=== PATIENT | male | born 1965 | race Hispanic/Latino ===

== ENCOUNTER 2021-02-15 11:44 | Emergency (ER) | payer OTHER, SELFPAY ==
--- OUTSIDE RECORDS SUMMARY | 2021-02-15 11:47 | XMS REPORT | Continuity of Care Document ---
:1965 Author Organization [facility] t Address [address] [place] [address] Support Name Relationship Address Phone Nara Littleoscarbrandy Spouse Unavailable Unavailable Nara Rodríguezoscarbrandy [place] [address] DISA Unavailable Unavailable Unavailable Joycelyn Rodríguez Spouse [address] [place] [address] YASMINE BRENNAN MD Primary Care Physician [address] [place] [address] VELMA BRENNAN, A Emergency Provider [address] [phone] [place] [address] Meeta RODRÍGUEZ Next of Kin [address] [phone] [place] [address] [address] DEBO BRENNAN, C Emergency Provider [address] [facility] [place] [address] Meeta RODRÍGUEZ Next of Kin [address] [place] [address] MARIELENA BRENNAN, E Emergency Provider [address] [facility] [address] [place] [address] NIGHAT BRENNAN, CASSANDRA Attending Provider [address] [phone] [place] [address] MD SAVANAH S Emergency Provider [address] [phone] [place] [address] MD PERRY A Emergency Provider [facility] [place] [address] MD JOY Emergency Provider [address] [place] [address] MD CARTER Emergency Provider [email or web address] [address] Care Team Providers Name Role Phone Javier AZEVEDO Primary Care Physician Unavailable Javier AZEVEDO Attending Clinician Unavailable RORO Attending Clinician Unavailable Javier AZEVEDO Admitting Clinician Unavailable RORO Admitting Clinician Unavailable Problems This patient has no known problems. Allergies, Adverse Reactions, Alerts Allergy Allergy Status Severity Reaction(s) Onset Inactive Treating Comm ents Source Name Type Date Date Clinician No Known DA Active U [facility] Drug 09-16 Allergie 00:00: s 00 Medications This patient has no known medications. Vital Signs Vital Name Observation Time Observation Value Comments Source BMI more than 35 2020-09-17 00:10:15 Y Body Mass Index 2020-09-17 00:10:15 29.5 Height 2020-09-17 00:10:15 165.1\S\65 Pulse Strength 2020-09-17 00:10:15 Normal /min Pulse Assessment Method 2020-09-17 00:10:15 Palpation /min Pulse Rhythm 2020-09-17 00:10:15 Regular /min Weight 2020-09-17 00:10:15 13916.849\S\2832 Weight Measurement Method 2020-09-17 00:10:15 Estimated by Patient BMI more than 35 2020-09-16 12:44:50 Y Body Mass Index 2020-09-16 12:44:50 29.5 Height 2020-09-16 12:44:50 165.1\S\65 Pulse Strength 2020-09-16 12:44:50 Normal /min Pulse Assessment Method 2020-09-16 12:44:50 Palpation /min Pulse Rhythm 2020-09-16 12:44:50 Regular /min Weight 2020-09-16 12:44:50 56996.849\S\2832 Weight Measurement Method 2020-09-16 12:44:50 Estimated by Patient Body Mass Index 2020-09-16 08:14:42 29.5 Height 2020-09-16 08:14:42 165.1\S\65 Weight 2020-09-16 08:14:42 06268.849\S\2832 Weight Measurement Method 2020-09-16 08:14:42 Estimated by Patient Body Mass Index 2020-09-16 08:13:10 29.5 Height 2020-09-16 08:13:10 165.1\S\65 Weight 2020-09-16 08:13:10 86711.849\S\2832 Weight Measurement Method 2020-09-16 08:13:10 Estimated by Patient WEIGHT 2020-09-16 08:11:00 80.374341 kg HEIGHT 2020-09-16 08:11:00 165.1 cm Procedures This patient has no known procedures. Results Test Description Test Time Test Comments Results Result Comments Source CBC with Differential 2017-02-12 08:24:00 Test Item Value Reference Range Interpretation Comme nts WBC (test code = WBC) 8.4 K/cumm 4.4-10.5 N RBC (test code = RBC) 4.20 M/cumm 4.10-5.70 N Hemoglobin (test code = HGB) 12.3 gm/dL 13.4-17.4 L Hematocrit (test code = HCT) 36.3 % 38.7-52.0 L MCV (test code = MCV) 86.5 fL 80-100 N MCH (test code = MCH) 29.4 pg 27.0-32.5 N MCHC (test code = MCHC) 34.0 g/dL 32.0-37.5 N RDW (test code = RDW) 15.0 % 11.5-14.5 H Platelet Count (test code = PLTCT) 159 K/cumm 140-440 N MPV (test code = MPV) 9.3 fL Diff Method (test code = DIFFM) Auto Neutrophil (test code = NEUT) 74.6 % 36-70 H Lymphocyte (test code = LYMPH) 15.7 % 12-44 N Monocyte (test code = MONO) 4.9 % 0-11 N Eosinophil (test code = EOS) 4.3 % 0-7 N Basophil (test code = BASO) 0.4 % 0-2 N Neutro Abs (test code = ANEUT) 6.3 K/cumm 1.6-7.4 N Lymph Abs (test code = ALYMPH) 1.3 K/cumm 0.5-4.6 N [place] Abs (test code = AMONO) 0.4 K/cumm 0.0-1.2 N Eos Abs (test code = AEOS) 0.36 K/cumm 0.00-0.74 N Baso Abs (test code = ABASO) 0.0 K/cumm 0.00-0.21 N Comprehensive Metabolic [id number] 08:19:00 Test Item Value Reference Range Interpretation Comments Sodium (test code = 133 mmol/L 135-145 L NA) Potassium (test 4.8 mmol/L 3.5-5.1 N code = K) Chloride (test code 97 mmol/L 98-105 L = CL) Carbon Dioxide 25 mmol/L 22-29 N (test code = CO2) Glucose (test code 448 mg/dL 70-115 HH = GLU) Blood Urea Nitrogen 23 mg/dL 6-20 H (test code = BUN) Creatinine (test 1.3 mg/dL 0.7-1.2 H code = CREAT) Calcium (test code 9.2 mg/dL 8.3-10.5 N = CA) Prot Total (test 7.1 g/dL 6.4-8.3 N code = TP) Albumin (test code 3.9 g/dL 3.5-5.2 N = ALB) A/G Ratio (test 1.2 Ratio code = AGRATIO) Globulin (test code 3.2 2.9-3.1 H = GLOB) Bili Total (test 0.6 mg/dL 0.1-0.9 N code = TBIL) Alk Phos (test code 135 U/L 40-129 H = APHOS) AST (test code = 16 U/L 1-40 N AST) ALT (test code = 11 U/L 1-41 N ALT) BUN/Creatinine 17.7 Ratio (test code = BCRATIO) Anion Gap (test 11 mmol/L 7-16 N code = AGAP) Estimated GFR (test >60 eGFR (es timated code = GFR) mL/min/1.73m2 Glomerular Horacio tration Rate) is an est imated value,calculate d from the patient's s rocael creatinine usin g the MDRD equation.I t is NOT the patient 's actual GFR. The eGFR provides a more clinicallyusefu l measure of kidn ey disease than se rum creatinine alone.This calculation octavio es sex and race into account, if the informationis provided. If th e race is not provided , and the patient isAfblankan-Amadilene can, multiply by 1.2 12. If sex is not prov ided, and thepatient is female, multipl y by 0.742. Results for patients <18 ye ars ofage have not been validated by th e MDRD study and shoul d be interpretedwith caution.eGFR Re sult Interpretation: eGFR > or = 60 is in t he Normal RangeeGF R < 60 may mean kidney diseaseeGFR < 1 5 may mean kidney failureRange s recommended by the National Kidney Foundation,http ://nkd ep.nih.gov POC Glucose, [id number] 07:32:00 Test Item Value Reference Range Interpretation Comments POC Glucose (test code = POCGLUC) 407 mg/dL 70-115 HH Special Procedure Send [id number] 14:19:00 Test Item Value Reference Range Interpretation Comments Performing Site (test see [facility] report code = SITE) Test Ordered (test B-Type Natriuretic code = TESTORD) Peptide POC Glucose, [id number] 12:28:00 Test Item Value Reference Range Interpretation Comments POC Glucose (test 236 mg/dL 70-115 H If you con chief yeoman your code = POCGLUC) patient crit ically ill, the Gael Accu- Chek InformII meters hould not be used for Glu cose determinations. Draw a venous Glucose and send to the Main Lab for Analysis.
[2021-02-15 15:28] LABS: Absolute Lymphocytes (CBC) 0.9 K/uL (0.7-4.9); Basophils % 0.6 % (0-1.3); Hematocrit 43.8 % (39.6-49.0); Lymphocytes % 7.8 % (15.3-44.8); RBC Red Blood Cell Count 5.05 M/uL (4.33-5.43)
--- NOTE | 2021-02-15 15:40 | RAD REPORT ---
EXAM DESCRIPTION: RAD - Chest Single View - 02/15/2021 3:32 pm CLINICAL HISTORY: DYSPNEA COMPARISON: No comparisons FINDINGS: Lines: None. Lungs: Diffuse prominence of the pulmonary interstitium. Pleural: No significant pleural effusions or pneumothorax. Cardiac: Cardiomegaly. Pacemaker. Sternotomy. Bones: No acute fractures. Other: IMPRESSION: Findings most likely representing pulmonary edema/ congestive heart failure.
[2021-02-15 15:46] LABS: Albumin 3.1 g/dL (3.4-5.0); Bilirubin Direct 1.7 mg/dL (0-0.2); Magnesium 2.3 mg/dL (1.8-2.4); Potassium 3.9 mmol/L (3.5-5.1); Protein, Total 7.1 g/dL (6.4-8.2); Troponin (Emerg Dept Use Only) 0.05 ng/mL (0.0-0.045)
[2021-02-15 15:56] LABS: Protime INR 1.19
--- NOTE | 2021-02-15 16:02 | ER ---
Nurse's Notes [facility] Name: Florentin Rodríguez Age: 55 yrs Sex: Male : 1965 Arrival Date: 02/15/2021 Time: 11:47 Bed 19 Private MD: Diagnosis: Unspecified combined systolic (congestive) and diastolic (congestive) heart failure;Acute pulmonary edema Presentation: 02/15 11:53 Chief complaint: Patient states: he had a cough. Dr. Maradiaga told him to come here. He tw2 called Dr. Hernandez and said I have a lot of fluids and to see if he can get tapped to get some fluid off. Coronavirus screen: At this time, the client does not indicate any symptoms associated with coronavirus-19. Ebola Screen: Patient denies travel to an Ebola-affected area in the 21 days before illness onset. Initial Sepsis Screen: Does the patient meet any 2 criteria? No. Patient's initial sepsis screen is negative. Does the patient have a suspected source of infection? No. Patient's initial sepsis screen is negative. Risk Assessment: Do you want to hurt yourself or someone else? Patient reports no desire to harm self or others. Onset of symptoms was February 15, 2021. 11:53 Method Of Arrival: Ambulatory tw2 11:53 Acuity: GALILEO 3 tw2 Triage Assessment: 12:01 General: Appears in no apparent distress. Behavior is calm, cooperative, appropriate tw2 for age. Pain: Denies pain. GI: Abdomen is round distended, Reports bloating. Historical: - Allergies: 11:57 Promethazine (hallucinate); tw2 - Home Meds: 11:57 clopidogrel 75 mg oral tab 1 tab once daily [Active]; Digoxin Oral [Active]; Entresto tw2 oral [Active]; - PMHx: 12:04 Hypertensive disorder; tw2 - PSHx: 11:57 triple bypass; tw2 - Immunization history:: Adult Immunizations Client reports receiving the 2nd dose of the Covid vaccine. - Social history:: Smoking status: Patient denies any tobacco usage or history of. Screenin:10 Abuse screen: Denies threats or abuse. Denies injuries from another. Nutritional bp screening: No deficits noted. Tuberculosis screening: No symptoms or risk factors identified. Fall Risk None identified. Assessment: 14:10 General: PT MOVED FROM WAITING TO RM 19. bp 15:10 Reassessment: PT REQUIRING EXTENSIVE COAXING TO ALLOW HEALTH CARE ACTIVITIES. PER PT, bp HE IS ONLY HERE TO SEE DR HERNANDEZ FOR PARACENTESIS EVALUATION. 16:44 Reassessment: PT SIGN OUT AMA. COUNSELED TO REMAIN BY PROVIDER, BUT REFUSED. PT URGED bp TO RETURN IF S/S RETURN OR WORSEN. Vital Signs: 11:53 BP 119 / 89; Pulse 88; Resp 17; Temp 97.8(TE); Pulse Ox 100% on R/A; tw2 15:10 BP 130 / 85; Pulse 81; Resp 16; Pulse Ox 95% ; bp 16:30 BP 116 / 84; Pulse 82; Resp 16; Pulse Ox 96% ; bp ED Course: 11:47 Patient arrived in ED. as 11:57 Triage completed. tw2 12:01 Arm band placed on. tw2 14:10 Patient has correct armband on for positive identification. Bed in low position. Call bp light in reach. Side rails up X2. 14:11 Haley Baron FNP-C is [facility]. kb 14:11 Serg Amaro MD is Attending Physician. kb 14:28 Chirag Herring, RUSTY is Primary Nurse. bp 15:05 Inserted saline lock: 20 gauge in right wrist, using aseptic technique. Blood collected.bp 15:32 XRAY Chest (1 view) In Process Unspecified. EDMS 16:01 Dante Oleary MD is Hospitalizing Provider. kb 16:43 No provider procedures requiring assistance completed. IV discontinued, intact, bp bleeding controlled, No redness/swelling at site. Pressure dressing applied. Administered Medications: 16:43 Not Given (Patient Refused): Lasix (furosemide) 40 mg IVP once; give over 2 minutes bp Outcome: 16:01 Decision to Hospitalize by Provider. kb 16:43 AMA AMA form signed bp 16:43 Condition: stable 16:45 Patient left the ED. bp Signatures: Dispatcher [employer] EDGA Haley Baron FNP-C FNP-Ckb Martinez, Amelia as Wise, Tara, RN RN tw2 Chirag Herring, RUSTY RN bp Corrections: (The following items were deleted from the chart) 12:01 11:57 Allergies: No Known Allergies; tw2 tw2 12:01 11:57 Allergies: Promethazine; 12:03 11:53 Chief complaint: Patient states: he had a cough. Dr. Maradiaga told him to come tw2 here. He called Dr. Hernandez and he has a lot of fluids and see if he can get tapped to get some fluid off. tw
--- NOTE | 2021-02-15 16:02 | EDPHYS ---
Physician Documentation [facility] Name: Florentin Rodríguez Age: 55 yrs Sex: Male : 1965 Arrival Date: 02/15/2021 Time: 11:47 Bed 19 Private MD: ED Physician Serg Amaro HPI: 02/15 15:07 This 55 yrs old Male presents to ER via Ambulatory with complaints of kb Abdominal Swelling. 14:45 "I went to Dr Petit's office today and his nurse practitioner told me I needed to come kb here for a tap. I've never had that done before." Pt denies known liver history. Pt reports he has had a cough for about 2 weeks, tested negative for covid on Saturday. . 15:09 The patient presents with abdominal distention that is diffuse. Onset: The kb symptoms/episode began/occurred "a while ago". The symptoms do not radiate. Associated signs and symptoms: none. The symptoms are described as constant. Modifying factors: The symptoms are alleviated by nothing, the symptoms are aggravated by nothing. Severity of pain: At its worst the pain was mild moderate in the emergency department the pain is unchanged. The patient has not experienced similar symptoms in the past. The patient has not recently seen a physician. Historical: - Allergies: 11:57 Promethazine (hallucinate); tw2 - Home Meds: 11:57 clopidogrel 75 mg oral tab 1 tab once daily [Active]; Digoxin Oral [Active]; Entresto tw2 oral [Active]; - PMHx: 12:04 Hypertensive disorder; tw2 - PSHx: 11:57 triple bypass; tw2 - Immunization history:: Adult Immunizations Client reports receiving the 2nd dose of the Covid vaccine. - Social history:: Smoking status: Patient denies any tobacco usage or history of. ROS: 15:09 Constitutional: Negative for fever, chills, and weight loss. kb 15:09 Respiratory: Positive for cough, Negative for dyspnea on exertion, hemoptysis, orthopnea, pleurisy, shortness of breath, sputum production, wheezing. 15:09 Abdomen/GI: Positive for abdominal distension, Negative for nausea, vomiting, and diarrhea. 15:09 All other systems are negative. Exam: 15:11 Constitutional: This is a well developed, well nourished patient who is awake, alert, kb and in no acute distress. Head/Face: Normocephalic, atraumatic. ENT: Moist Mucous membranes Cardiovascular: Regular rate and rhythm with a normal S1 and S2. No gallops, murmurs, or rubs. No pulse deficits. Skin: Warm, dry with normal turgor. Normal color. MS/ Extremity: Pulses equal, no cyanosis. Neurovascular intact. Full, normal range of motion. Neuro: Awake and alert, GCS 15, oriented to person, place, time, and situation. Moves all extremities. Normal gait. Psych: Awake, alert, with orientation to person, place and time. Behavior, mood, and affect are within normal limits. 15:11 Respiratory: the patient does not display signs of respiratory distress, Respirations: normal, Breath sounds: rhonchi, that are mild, that are moderate, are scattered. 15:11 Abdomen/GI: Inspection: distension, that is mild, that is moderate, soft, not tense, Bowel sounds: normal, Palpation: abdomen is soft and non-tender, in all quadrants. Vital Signs: 11:53 BP 119 / 89; Pulse 88; Resp 17; Temp 97.8(TE); Pulse Ox 100% on R/A; tw2 15:10 BP 130 / 85; Pulse 81; Resp 16; Pulse Ox 95% ; bp 16:30 BP 116 / 84; Pulse 82; Resp 16; Pulse Ox 96% ; bp MDM: 14:11 Patient medically screened. kb 14:44 Data reviewed: vital signs, nurses notes. Data interpreted: Pulse oximetry: on room air kb is 100 %. Interpretation: normal. 15:07 ED course: Dr Petit's office contacted. [employer] states they discussed pt with Dr Pedersen and kb he agreed to tap him but he had to come through the ER. Contacted Dr Pedersen who will be happy to consult on the pt if needed. . 16:00 Counseling: I had a detailed discussion with the patient and/or guardian regarding: the kb historical points, exam findings, and any diagnostic results supporting the discharge/admit diagnosis, lab results, radiology results, the need for further work-up and treatment in the hospital. Physician consultation: MARIANNA Bertrand contacted about admission. Pt to be admitted to [facility]. 16:43 ED course: Pt does not want to stay in the hospital. States he got an appt set up with yanet Pedersen tomorrow and they can do a tap on Saturday so he is going to go home. 02/15 14:22 Order name: Basic Metabolic Panel; Complete Time: 15:55 kb 02/15 14:22 Order name: CBC with Diff kb 02/15 14:22 Order name: LFT's; Complete Time: 15:55 kb 02/15 14:22 Order name: Magnesium; Complete Time: 15:55 kb 02/15 14:22 Order name: NT PRO-BNP; Complete Time: 15:55 kb 02/15 14:22 Order name: PT-INR; Complete Time: 16:01 kb 02/15 14:22 Order name: Troponin (emerg Dept Use Only); Complete Time: 15:55 kb 02/15 14:22 Order name: XRAY Chest (1 view); Complete Time: 15:45 kb 02/15 14:22 Order name: Cardiac monitoring; Complete Time: 15:08 kb 02/15 14:22 Order name: IV Saline Lock; Complete Time: 15:08 kb 02/15 14:22 Order name: Labs collected and sent; Complete Time: 15:08 kb 02/15 14:22 Order name: O2 Per Protocol; Complete Time: 15:08 kb 02/15 14:22 Order name: O2 Sat Monitoring; Complete Time: 15:08 kb Administered Medications: 16:43 Not Given (Patient Refused): Lasix (furosemide) 40 mg IVP once; give over 2 minutes bp Disposition: 02/16 07:03 Co-signature as Attending Physician, Serg Amaro MD I agree with the assessment and sp3 plan of care. Disposition Summary: 02/15/21 16:45 Left Against Medical Advice Problem: new(02/15/21 16:45) kb Symptoms: are unchanged(02/15/21 16:45) kb Location: Home(02/15/21 16:45) bp Condition: Stable(02/15/21 16:45) bp Diagnosis - Unspecified combined systolic (congestive) and diastolic (congestive) heart kb failure(02/15/21 16:45) - Acute pulmonary edema(02/15/21 16:45) kb Followup: kb - With: Private Physician - When: 2 - 3 days - Reason: Recheck today's complaints, Continuance of care, Re-evaluation by your physician Followup: kb - With: Emergency Department - When: As needed - Reason: Worsening of condition Signatures: Dispatcher [employer] EDHaley Velasco, MANASA HOBBS-Janie Dixon, RN RN tw2 Chirag Herring, RN RN bp Serg Amaro MD MD sp3 Corrections: (The following items were deleted from the chart) 02/15 12: 11:57 Allergies: No Known Allergies; 12: 11:57 Allergies: Promethazine; 15:08 14:22 EKG - Nurse/Tech ordered. kb bp 15:09 15:08 The patient presents with kb kb 15:11 14:45 "I went to Dr Petit's office today and his nurse practitioner told me I needed to kb come here for a tap. I've never had that done before." Pt denies known liver history. . kb 16:44 16:01 Observation kb kb 16:44 16:01 Dante Oleary kb kb 16:44 16:01 Telemetry/MedSurg (observation) kb kb 16:44 16:01 Stable kb kb 16:44 16:01 new kb kb 16:44 16:01 are unchanged kb kb 16:44 16:01 Standard kb kb 16:44 16:01 kb kb 16:44 16:01 Unspecified combined systolic (congestive) and diastolic (congestive) heart kb failure kb 16:44 16:01 Acute pulmonary edema kb kb 16:45 16:45 Home kb bp 16:45 16:45 Stable kb bp
[2021-02-15 16:52] VITALS: TEMP 97.8
[2021-02-15 16:55] VITALS: BP 116/84; O2SAT 96
[2021-02-15 17:44] LABS: Blood Morphology Comment NOT SEEN (NOT SEEN); Platelet Estimate DECR; White Blood Cell Scan OK (OK)
== END 2021-02-15 16:45 | disposition left against medical advice (07) ==
LOC: ER 11:44
DX: I50.40 Unspecified combined systolic (congestive) and diastolic (congestive) heart failure (principal); J81.0 Acute pulmonary edema; I10 Essential (primary) hypertension
CPT/HCPCS: 36415; 71045; 80048; 80076; 83735; 83880; 84484; 85025; 85610; 99283